=== PATIENT | female | born 1935 | race Caucasian/White ===

== ENCOUNTER 2016-12-11 10:07 | Inpatient (IN) | payer MEDICARE, BC ==
--- NOTE | 2016-12-11 10:12 | EDM.PDOC ---
[id number] AMBULANCE Time Seen by Provider: 12/11/16 10:11 Source: Reports: Patient, EMS, Family, Old records, RN, RN notes reviewed History Limitations: Reports: No limitations - History of Present Illness INITIAL COMMENTS - FREE TEXT/NARRATIVE: Arrives by ambulance after falling in her apartment during the night. Denies head injury. Pt states she was on the floor for less than one hour. C/O left foot pain, and at the hip and left elbow. Denies LOC. Occurred When: this morning Occurred Where: home Method of Injury: fall Severity: severe Pain/Injury Location: Reports: upper extremity, left, lower extremity, left Consciousness: Reports: no loss of consciousness, remembers incident Associated Symptoms: Reports: no other symptoms Allergies/ADRs: Allergies tape Allergy (Uncoded 12/11/16 10:54) Cannot Remember Home Medications: Ambulatory Orders Digoxin [Digox] 125 mcg PO DAILY 06/23/14 [Confirmed 12/11/16] Diltiazem HCl [Diltiazem 24Hr ER] 300 mg PO DAILY 06/23/14 [Confirmed 12/11/16] Fa/Arginine HCl/B12/B6/Pep Ex [Folbee Ar Tablet] 1 tab PO 1200 06/23/14 [ Confirmed 12/11/16] sitaGLIPtin Phosphate [Januvia] 100 mg PO 1200 06/23/14 [Confirmed 12/11/16] Dorzolamide HCl/Timolol Maleat [Cosopt Eye Drops] 1 drop EYERT BID 07/05/15 [ Confirmed 12/11/16] Glimepiride 4 mg PO 0800,1800 07/05/15 [Confirmed 12/11/16] atorvaSTATin [Lipitor] 20 mg PO BEDTIME 07/05/15 [Confirmed 12/11/16] Potassium Chloride [Klor-Con 10] 20 meq PO 1200,1800 11/11/15 [Confirmed ] Sertraline [Zoloft] 50 mg PO BEDTIME 11/11/15 [Confirmed 12/11/16] traMADol HCl [Tramadol HCl] 50 mg PO BID 11/11/15 [Confirmed 12/11/16] OXcarbazepine [Oxcarbazepine] 450 mg PO 0800,2100 04/19/16 [Confirmed 12/11/16] Acetaminophen [Tylenol Extra Strength] 1,000 mg PO 0800,199908/10/16 [ Confirmed 12/11/16] Furosemide 40 mg PO DAILY 08/10/16 [Confirmed 12/11/16] Metolazone 2.5 mg PO .SUNDAY,SUN,Sun08/10/16 [Confirmed 12/11/16] Warfarin [Coumadin] 5 mg PO 1800 08/10/16 [Confirmed 12/11/16] Lisinopril [Prinivil] 5 mg PO DAILY 30 Days 08/24/16 [Confirmed 12/11/16] Magnesium Oxide 250 mg PO BIDM tablet 08/24/16 [Confirmed 12/11/16] metFORMIN [Glucophage] 1,000 mg PO BIDMEALS #60 tablet 08/24/16 [Confirmed 12/11] Acetaminophen/HYDROcodone [[place] 325-10 MG] 0.5 tab PO Q4H PRN #20 tablet Aspirin [Halfprin] 81 mg PO 1200 tab.ec 12/12/16 Ciprofloxacin HCl [Cipro] 500 mg PO Q12H #10 tablet 12/12/16 Gabapentin [Neurontin] 600 mg PO TID PRN #0 12/12/16 [Confirmed 12/11/16] Iron Polysaccharides Complex [Ferrex 150] 150 mg PO DAILY #30 cap 12/12/16 Past Medical History HEENT History: Reports: Glaucoma, Hard of hearing, Impaired vision Other HEENT History: glasses; UPPER AND LOWER PARTIALS Cardiovascular History: Reports: Afib, Blood clots/VTE/DVT, CAD, Heart Failure, High cholesterol, Hypertension, Stents Respiratory History: Reports: None Genitourinary History: Reports: Urinary incontinence, UTI, recurrent Other Genitourinary History: stress 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: Musculoskeletal History: Reports: Osteoarthritis Neurological History: Reports: CVA, Neuropathy, peripheral, Other (see below) Other Neuro History: trigeminal neuralgia Psychiatric History: Reports: Depression Other Psychiatric History: recent loss of Endocrine/Metabolic History: Reports: Diabetes, type II - Infectious Disease History Infectious Disease History: Reports: Other (see below) Other Infectious Disease History: UNKNOWN - Past Surgical History GI Surgical History: Reports: Appendectomy, Cholecystectomy Musculoskeletal Surgical History: Reports: Shoulder replacement Social & Family History - Family History Family Medical History: Noncontributory - Tobacco Use Smoking Status *Q: Former Smoker Years of Tobacco use: 9 Packs/Tins Daily: 1 Used Tobacco, but Quit: Yes Month Tobacco Last Used: 1964 Second Hand Smoke Exposure: No - Caffeine Use Caffeine Use: Reports: Coffee, Tea Other Caffeine Use: DAILY AVERAGE 1 IF ANY - Alcohol Use Days Per Week of Alcohol Use: 0 - Recreational Drug Use Recreational Drug Use: No - Living Situation & Occupation Living situation: Reports: , assisted living Occupation: retired Review of Systems - Review of Systems Review Of Systems: ROS reveals no pertinent complaints other than HPI. Trauma Exam - Physical Exam Exam: See Below Exam Limited By: No limitations General Appearance: Reports: alert, WD/WN, no apparent distress Head: Reports: atraumatic, normocephalic Eyes: bilateral eye: EOMI, normal inspection, PERRL Ears: Reports: normal external exam, normal canal, hearing grossly normal, normal TMs Nose: Reports: normal inspection, normal mucousa, no blood Throat/Mouth: Reports: Normal inspection, Normal lips, Normal teeth, Normal gums , Normal oropharynx, Normal voice, No airway compromise Neck: Reports: non-tender, full range of motion, normal alignment, normal inspection Respiratory Exam: Reports: no respiratory distress, lungs clear, normal breath sounds Cardiovascular: Reports: normal peripheral pulses, regular rate, rhythm, no edema, no gallop, no JVD, no murmur, no rub GI/Abdominal: Reports: normal bowel sounds, soft, non tender, no distention (Female) Exam: Deferred Rectal (Female) Exam: Deferred Back: Reports: decreased range of motion, paraspinal tenderness. Denies: CVA tenderness (R), CVA tenderness (L), vertebral tenderness Extremities: Reports: pelvis stable, bony-point tenderness (left forefoot), pedal edema (chronic/stable per pt), unable to bear weight, other (mild swelling of left elbow. 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, no motor/sensory deficits, alert , normal mood/affect, oriented x 3 Skin: Reports: Normal color, Warm/dry - Denys Coma Score Best Eye Response (Denys): (4) open spontaneously Best Verbal Response (Warren): (5) oriented Best Motor Response (Denys): (6) obeys commands Denys Total: 15 ED TRAUMA EXTREMITY PROCEDURES - Splinting Left Lower Extremity Splint site: left lower extremity Pre-procedure NV status: normal Post-procedure NV status: normal Splint material: fiberglass Splint design: posterior Applied & form fitted by: nurse Provider post-splint application NV check: NV status normal, good position Complications: Yes Course - Vital Signs Last Recorded V/S: Last Vital Signs Temp 36.4 C 12/12/16 10:38 Pulse 62 12/12/16 10:38 Resp 20 12/12/16 10:38 BP 137/72 12/12/16 10:38 Pulse Ox 94 L 12/12/16 10:38 - Orders/Labs/Meds Labs: Laboratory Tests 12/11/16 12/11/16 12/11/16 Range/Units 10:14 10:28 10:28 WBC 8.0 (5.0-10.0) 10^3/uL RBC 3.78 L (4.2-5.4) 10^6/uL Hgb 10.6 L (12.0-16.0) g/dL Hct 32.5 L (37.0-47.0) % MCV 86.0 (80-100) fL MCH 28.0 (27.0-34.0) pg MCHC 32.6 L (33.0-35.0) g/dL Plt Count 298 (150-450) 10^3/uL Neut % (Auto) 78.9 H (42.2-75.2) % Lymph % (Auto) 10.5 L (20.5-50.1) % Russell % (Auto) 9.1 H (2-8) % Eos % (Auto) 1.1 (1.0-3.0) % Baso % (Auto) 0.4 (0.0-1.0) % PT (9.0-12.0) SEC INR (0.9-1.2) Sodium 136 (135-145) mmol/L Potassium 4.0 (3.6-5.0) mmol/L Chloride 95 L (101-111) mmol/L Carbon Dioxide 31.0 (21.0-31.0) mmol/L Anion Gap 14.0 BUN 16 (7-18) mg/dL Creatinine 0.4 L (0.6-1.3) mg/dL Est Cr Clr Drug Dosing 92.69 mL/min Estimated GFR (MDRD) > 60 BUN/Creatinine Ratio 40.00 Glucose 149 H (74-105) mg/dL Calcium 9.3 (8.4-10.2) mg/dl Total Bilirubin 0.3 (0.2-1.0) mg/dL AST 29 (10-42) IU/L ALT 31 (10-60) IU/L Alkaline Phosphatase 88 (42-121) IU/L Total Protein 7.0 (6.7-8.2) g/dl Albumin 3.9 (3.2-5.5) g/dl Globulin 3.1 Albumin/Globulin Ratio 1.26 Urine Color Yellow (YELLOW) Urine Appearance Cloudy (CLEAR) Urine pH 7.0 (5.0-9.0) Ur Specific [place] 1.015 (1.005-1.030) Urine Protein Negative (NEGATIVE) Urine Glucose (UA) Negative (NEGATIVE) Urine Ketones Negative (NEGATIVE) Urine Occult Blood Trace-intact H (NEGATIVE) Urine Nitrite Positive H (NEGATIVE) Urine Bilirubin Negative (NEGATIVE) Urine Urobilinogen 0.2 (0.2-1.0) mg/dL Ur Leukocyte Esterase Negative (NEGATIVE) Urine RBC 0-5 /HPF Urine WBC 10-20 H (0-5/HPF) /HPF Ur Epithelial Cells Few /HPF Urine Bacteria Many H (0-FEW/HPF) /HPF Digoxin (0-2.5) ng/ml 12/11/16 12/11/16 Range/Units 10:28 10:28 WBC (5.0-10.0) 10^3/uL RBC (4.2-5.4) 10^6/uL Hgb (12.0-16.0) g/dL Hct (37.0-47.0) % MCV (80-100) fL MCH (27.0-34.0) pg MCHC (33.0-35.0) g/dL Plt Count (150-450) 10^3/uL Neut % (Auto) (42.2-75.2) % Lymph % (Auto) (20.5-50.1) % Russell % (Auto) (2-8) % Eos % (Auto) (1.0-3.0) % Baso % (Auto) (0.0-1.0) % PT 18.2 H (9.0-12.0) SEC INR 1.8 H (0.9-1.2) Sodium (135-145) mmol/L Potassium (3.6-5.0) mmol/L Chloride (101-111) mmol/L Carbon Dioxide (21.0-31.0) mmol/L Anion Gap BUN (7-18) mg/dL Creatinine (0.6-1.3) mg/dL Est Cr Clr Drug Dosing mL/min Estimated GFR (MDRD) BUN/Creatinine Ratio Glucose (74-105) mg/dL Calcium (8.4-10.2) mg/dl Total Bilirubin (0.2-1.0) mg/dL AST (10-42) IU/L ALT (10-60) IU/L Alkaline Phosphatase (42-121) IU/L Total Protein (6.7-8.2) g/dl Albumin (3.2-5.5) g/dl Globulin Albumin/Globulin Ratio Urine Color (YELLOW) Urine Appearance (CLEAR) Urine pH (5.0-9.0) Ur Specific [place] (1.005-1.030) Urine Protein (NEGATIVE) Urine Glucose (UA) (NEGATIVE) Urine Ketones (NEGATIVE) Urine Occult Blood (NEGATIVE) Urine Nitrite (NEGATIVE) Urine Bilirubin (NEGATIVE) Urine Urobilinogen (0.2-1.0) mg/dL Ur Leukocyte Esterase (NEGATIVE) Urine RBC /HPF Urine WBC (0-5/HPF) /HPF Ur Epithelial Cells /HPF Urine Bacteria (0-FEW/HPF) /HPF Digoxin 1.9 (0-2.5) ng/ml Meds: Medications Discontinued Medications Generic Name Dose Route Start Last Admin Trade Name Freq PRN Reason Stop Dose Admin Acetaminophen 1,000 mg 12/11/16 20:00 12/12/16 09:08 Tylenol Extra Strength PO 1,000 mg 08,1999 RIKA Administration Hydrocodone Bitart/Acetaminophen 0.5 tab 12/11/16 14:44 12/11/16 18:05 [place] 325-10 Mg PO 0.5 tab Q4H PRN Administration Pain (moderate 4-6) Aspirin 81 mg 12/12/16 12:00 12/12/16 12:42 Halfprin PO 81 mg 1200 RIKA Administration Atorvastatin Calcium 20 mg 12/11/16 21:00 12/11/16 21:02 Lipitor PO 20 mg BEDTIME RIKA Administration Digoxin 125 mcg 12/12/16 09:00 12/12/16 08:52 Lanoxin PO 125 mcg DAILY IRKA Administration Diltiazem HCl 120 mg 12/12/16 09:00 12/12/16 08:51 Cardizem Cd PO 120 mg DAILY RIKA Administration Diltiazem HCl 180 mg 12/12/16 09:00 12/12/16 08:51 Cardizem Cd PO 180 mg DAILY RIKA Administration Dorzolamide/Timolol 0 ml 12/11/16 21:00 12/12/16 09:02 Cosopt 2%-0.5% Ophth Soln EYERT 1 drop BID RIKA Administration Furosemide 40 mg 12/12/16 09:00 12/12/16 08:54 Lasix PO 40 mg DAILY RIKA Administration Gabapentin 600 mg 12/11/16 14:28 Neurontin PO TID PRN Pain Glimepiride 4 mg 12/11/16 18:00 12/12/16 09:09 Amaryl PO 4 mg 0800,1800 RIKA Administration Ceftriaxone Sodium 1 gm/ 50 mls @ 100 mls/hr 12/11/16 15:00 12/12/16 11:31 Sodium Chloride IV 100 mls/hr Q24H RIKA Administration Insulin Aspart 0 unit 12/11/16 17:00 12/12/16 12:31 Novolog SUBCUT 1 unit QIDACANDBED RIKA Administration Protocol Lisinopril 5 mg 12/12/16 09:00 12/12/16 08:54 Prinivil PO 5 mg DAILY RIKA Administration Magnesium Oxide 250 mg 12/11/16 14:30 12/12/16 08:49 Magnesium Oxide PO 250 mg BIDM RIKA Administration Metformin HCl 1,000 mg 12/11/16 18:00 12/12/16 08:49 Glucophage PO 1,000 mg BIDMEALS RIKA Administration Metolazone 2.5 mg 12/13/16 09:00 Zaroxolyn PO [id number] [facility] Non-Formulary Medication 1 tab 12/12/16 12:00 Fa/Arginine Hcl/B12/B6/Pep Ex [Folbee Ar Tablet] PO 1200 RIKA Non-Formulary Medication 600 mg 12/11/16 17:00 Gabapentin PO QID RIKA Non-Formulary Medication 100 mg 12/12/16 12:00 Sitagliptin Phosphate [Januvia] PO 1200 RIKA Ondansetron HCl 4 mg 12/11/16 14:44 Zofran IVPUSH Q6H PRN Nausea/Vomiting Oxcarbazepine 450 mg 12/11/16 21:00 12/12/16 09:10 Trileptal PO 450 mg 0800,2100 [facility] Administration Polyethylene Glycol 17 gm 12/11/16 14:44 Miralax PO DAILY PRN Constipation Polysaccharide Iron Complex 150 mg 12/11/16 15:30 12/12/16 08:52 Ferrex 150 PO 150 mg DAILY RIKA Administration Potassium Chloride 20 meq 12/11/16 18:00 12/12/16 12:42 Klor-Con 10 PO 20 meq 1200,1800 RIKA Administration Sertraline HCl 50 mg 12/11/16 21:00 12/11/16 21:02 Zoloft PO 50 mg BEDTIME RIKA Administration Sodium Chloride 10 ml 12/11/16 14:44 12/12/16 11:32 Saline Flush FLUSH 10 ml ASDIRECTED PRN Administration Keep Vein Open Tramadol HCl 50 mg 12/11/16 21:00 12/12/16 09:00 Ultram PO 50 mg BID RIKA Administration Warfarin Sodium 5 mg 12/11/16 15:15 12/11/16 15:49 Coumadin PO 12/11/16 15:16 5 mg ONETIME ONE Administration Warfarin Sodium 0 dose 12/11/16 15:15 Pharmacy To Dose - Warfarin PO ASDIRECTED RIKA Warfarin Sodium 5 mg 12/12/16 14:00 12/12/16 13:00 Coumadin PO 12/12/16 14:01 5 mg ONETIME ONE Administration - Radiology Interpretation Free Text/Narrative:: Xray left foot: Fractures at distal MTs 2-5, see Rad. report. Xray hip and elbow: no fractures Departure - Departure Time of Disposition: 11:00 (admitted to Dr. Rivera) Disposition: Admitted As Inpatient 64 Condition: fair Clinical Impression: Fall as cause of accidental injury at home as place of occurrence Multiple closed fractures of metatarsal bone of left foot Qualifiers: Encounter type: initial encounter Qualified Code(s): S92.302A - Fracture of unspecified metatarsal bone(s), left foot, initial encounter for closed fracture UTI (urinary tract infection) Qualifiers: Urinary tract infection type: site unspecified Hematuria presence: without hematuria Qualified Code(s): N39.0 - Urinary tract infection, site not specified
--- NOTE | 2016-12-11 11:06 | CR ---
CLINICAL HISTORY: 81-year-old female injured in a fall. INTERPRETATION abnormal. Fractures with impaction and some angulation deformity distal diametaphysis second, third, fourth an d fifth metatarsals. Generalized osteopenia, pes cavus and hammertoe deformities. Small bone spur at the insertion planta r aponeurosis base of the os calcis. No foreign bodies or inflammatory periostitis. CONCLUSION: Distal metatarsal fractures (see above) satisfactorily opposed and aligned.
--- NOTE | 2016-12-11 11:07 | CR ---
CLINICAL HISTORY: 81-year-old female injured in a fall with left hip pain. INTERPRETATION: AP pelvis/hips and AP/frog lateral views of the left hip abnormal. 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 Symmetric spacing of the SI joints but asymmetric narrowing of the right hip joint. Generalized osteopenia but no sign of acute fracture bony pelvis or either hip. No hip dislocation.
[2016-12-11 11:09] LABS: CHLORIDE,CL 95 mmol/L (101-111); SODIUM,NA 136 mmol/L (135-145)
--- NOTE | 2016-12-11 12:20 | CR ---
CLINICAL HISTORY: 81 year old female injured left elbow (fall). INTERPRETATION: Slightly elevated fat pad suggesting elbow joint effusion. Homogeneous normal density without sign of acute fracture or dislocation left elbow. (Methylmethacr ylate in the medulla ipsilateral humerus proximally).
[2016-12-11] MEDS ORDERED: Gabapentin 300 MG Cap PO PRN (14:28)
[2016-12-11] MEDS ORDERED: Acetaminophen/HYDROcodone 325-10 MG Tab PO PRN (14:44)
[2016-12-11] MEDS ORDERED: Polyethylene Glycol 3350 Powder 17 GM Packet PO PRN (14:44)
[2016-12-11] MEDS ORDERED: Ondansetron 4 MG/2 ML SDV IVPUSH PRN (14:44)
--- NOTE | 2016-12-11 15:02 | PCM.HP ---
H&P History of Present Illness - General Date of Service: 12/11/16 Admit Problem/Dx: Admission Diagnosis/Problem Admission Diagnosis/Problem Fall Source of Information: Patient, Family History Limitations: Reports: No limitations - History of Present Illness Initial Comments - Free Text/Narative: 81-year-old female with past medical history of atrial fibrillation, coronary artery disease status post stent, CVA with right hemiparesis, diabetes mellitus type 2 presented to the emergency room after falling at home. Patient lives at assisted living facility by herself. She stated that about 2 AM she got as usual to the bathroom for urination. She felt unsteady and fell on her left side between the toilet seat and to shower. She tried to support herself on the wall. she denies hitting her head or losing consciousness. She sat both 1-2 minutes trying to get herself up but she was not able so she puts the alarm button and the nurse came up. She was brought to the emergency room. She felt pain in her left elbow, left hip, left foot. She denies any other symptoms. Patient denies feeling sick, ill, or having any new symptoms prior to fall. the emergency room her left foot x-ray showed distal diametaphysis fracture with impaction and some angulation deformity in second, third, fourth, and fifth metatarsal. left elbow and hip x-ray was unremarkable for acute findings. UA showed positive nitrates and 10-20 WBCs and many bacteria. The shocks at level 1.9. WBC 8.0. Hemoglobin 10.6. platelet 298. INR 1.8. Sodium 136. Potassium 4.0. Creatinine 0.4. Random blood glucose 149. In the emergency room his splint was placed in the left lower extremities. Mcginnis catheter was placed in the emergency room for comfort. upon admission, Dr. Cleaning from podiatry was consulted. urine culture was sent. Versed and was started for possible complicated UTI Left Hip Pain Score (Numeric/FACES): 3 - Related Data Allergies/Adverse Reactions: Allergies Allergy/AdvReac Type Severity Reaction Status Date / Time tape Allergy Cannot Uncoded 12/11/16 10:54 Remember Home Medications: Home Meds Aspirin [Ecotrin] 81 mg PO 1200 06/23/14 [History] Digoxin [Digox] 125 mcg PO DAILY 06/23/14 [History] Diltiazem HCl [Diltiazem 24Hr ER] 300 mg PO DAILY 06/23/14 [History] Fa/Arginine HCl/B12/B6/Pep Ex [Folbee Ar Tablet] 1 tab PO 1200 06/23/14 [History ] sitaGLIPtin Phosphate [Januvia] 100 mg PO 1200 06/23/14 [History] Dorzolamide HCl/Timolol Maleat [Cosopt Eye Drops] 1 drop EYERT BID 07/05/15 [ History] Glimepiride 4 mg PO 0800,1800 07/05/15 [History] atorvaSTATin [Lipitor] 20 mg PO BEDTIME 07/05/15 [History] Potassium Chloride [Klor-Con 10] 20 meq PO 1200,1800 11/11/15 [History] Sertraline [Zoloft] 50 mg PO BEDTIME 11/11/15 [History] traMADol HCl [Tramadol HCl] 50 mg PO BID 11/11/15 [History] Gabapentin [Neurontin] 600 mg PO QID 04/19/16 [History] OXcarbazepine [Oxcarbazepine] 450 mg PO 0800,2100 04/19/16 [History] Acetaminophen [Tylenol Extra Strength] 1,000 mg PO 0800,199908/10/16 [History] Furosemide 40 mg PO DAILY 08/10/16 [History] Metolazone 2.5 mg PO .SUNDAY,SUN,Sun08/10/16 [History] Warfarin [Coumadin] 5 mg PO 1800 08/10/16 [History] Lisinopril [Prinivil] 5 mg PO DAILY 30 Days 08/24/16 [Rx] Magnesium Oxide 250 mg PO BIDM tablet 08/24/16 [Rx] metFORMIN [Glucophage] 1,000 mg PO BIDMEALS #60 tablet 08/24/16 [Rx] Past Medical History HEENT History: Reports: Glaucoma, Hard of hearing, Impaired vision Other HEENT History: glasses; UPPER AND LOWER PARTIALS Cardiovascular History: Reports: Afib, Blood clots/VTE/DVT, CAD, Heart Failure, High cholesterol, Hypertension, Stents Respiratory History: Reports: None Genitourinary History: Reports: Urinary incontinence, UTI, recurrent Other Genitourinary History: stress incont HAND I CUTTER History: Reports: Musculoskeletal History: Reports: Osteoarthritis Neurological History: Reports: CVA, Neuropathy, peripheral, Other (see below) Other Neuro History: trigeminal neuralgia Psychiatric History: Reports: Depression Other Psychiatric History: recent loss of Endocrine/Metabolic History: Reports: Diabetes, type II - Infectious Disease History Infectious Disease History: Reports: Other (see below) Other Infectious Disease History: UNKNOWN - Past Surgical History GI Surgical History: Reports: Appendectomy, Cholecystectomy Musculoskeletal Surgical History: Reports: Shoulder replacement Social & Family History - Family History Family Medical History: Noncontributory - Tobacco Use Smoking Status *Q: Former Smoker Years of Tobacco use: 9 Packs/Tins Daily: 1 Used Tobacco, but Quit: Yes Month Tobacco Last Used: 1964 Second Hand Smoke Exposure: No - Caffeine Use Caffeine Use: Reports: Soda Other Caffeine Use: Diet coke - Alcohol Use Days Per Week of Alcohol Use: 0 - Recreational Drug Use Recreational Drug Use: No - Living Situation & Occupation Living situation: Reports: , assisted living Occupation: retired H&P Review of Systems - Review of Systems: Review Of Systems: See Below General: Reports: no symptoms HEENT: Reports: no symptoms Pulmonary: Reports: No Symptoms Cardiovascular: Reports: no symptoms Gastrointestinal: Reports: No symptoms Genitourinary: Reports: no symptoms Musculoskeletal: Denies: neck pain, shoulder pain Skin: Reports: no symptoms Psychiatric: Reports: no symptoms Neurological: Reports: Other (she has chronic left facial neuropathic pain). Denies: Confusion, Dizziness, Headache, Numbness, Paresthesia, Seizure, Syncope , Trouble Speaking, Difficulty Walking Hematologic/Lymphatic: Reports: no symptoms Immunologic: Reports: no symptoms Exam - Exam Exam: See Below - Vital Signs Vital Signs: Last Vital Signs Temp 36.1 C 12/11/16 12:15 Pulse 64 12/11/16 12:15 Resp 18 12/11/16 12:15 BP 128/64 12/11/16 12:15 Pulse Ox 96 12/11/16 12:15 Weight: 71.223 kg - Exam General: alert, oriented, cooperative, mild distress. No: moderate distress, severe distress, sedated, lethargic, obtunded HEENT: Conjunctiva clear, EACs clear, EOMI, Hearing intact, Mucosa moist & pink , Nares patent, Normal nasal septum, Posterior pharynx clear, Pupils equal, Pupils reactive, TMs clear, PERRLA Neck: supple, trachea midline, full range of motion. No: JVD Lungs: Clear to auscultation, Normal respiratory effort. No: Crackles, Rales, Rhonchi, Rub, Stridor, Wheezing Cardiovascular: regular rate, regular rhythm, normal S1, normal S2 Abdomen: normal bowel sounds, soft. No: organomegaly, peritoneal signs, distention, guarding, rigidity, rebound, tenderness, absent bowel sounds (Female) Exam: Deferred Rectal (Female) Exam: Deferred Back Exam: normal inspection. No: CVA tenderness (L), CVA tenderness (R) Extremities: edema (non pitting 2+ bilateral lower extremity edema. Chronic according to patient. left elbow bruised laterally. normal hips. Left lower extremity is in splint. Toes are normal bilaterally.). No: clubbing, cyanosis, calf tenderness Skin: warm, dry Neurological: cranial nerves intact, normal speech, normal tone, focal deficit ( right-sided weakness which is chronic per patient. Patient denies any changes.) Neuro Extensive - Mental Status: alert, oriented x3, normal mood/affect, normal cognition Neuro Extensive - Motor, Sensory, Reflexes: CN II-XII intact, normal gait, normal reflexes Psychiatric: alert, normal affect, normal mood - Patient Data Result Diagrams: 12/11/16 10:28 12/11/16 10:28 *Q Meaningful Use (ADM) - VTE *Q VTE Criteria *Q: - Stroke *Q Stroke Criteria *Q: - AMI *Q AMI Criteria *Q: - Problem List (1) Neuropathic pain SNOMED Code(s): 725102960 ICD Code: M79.2 - NEURALGIA AND NEURITIS, UNSPECIFIED Status: Chronic Priority: Low Current Visit: No (2) Atrial fibrillation SNOMED Code(s): 17424480 ICD Code: I48.91 - UNSPECIFIED ATRIAL FIBRILLATION Status: Chronic Priority: Medium Current Visit: No (3) Bilateral lower extremity edema SNOMED Code(s): 731427196 ICD Code: R60.0 - LOCALIZED EDEMA Status: Chronic Priority: Low Current Visit: Yes Onset Date: 07/05/15 (4) Diabetes mellitus type 2, uncomplicated SNOMED Code(s): 665124893 ICD Code: E11.9 - TYPE 2 DIABETES MELLITUS WITHOUT COMPLICATIONS Status: Chronic Current Visit: No (5) Fall SNOMED Code(s): 1221007, 574426129 ICD Code: W19.XXXA - UNSPECIFIED FALL, INITIAL ENCOUNTER Status: Acute Priority: High Current Visit: Yes Qualifiers: Encounter type: initial encounter Qualified Code(s): W19.XXXA - Unspecified fall, initial encounter (6) Trigeminal neuralgia SNOMED Code(s): 54634735 ICD Code: G50.0 - TRIGEMINAL NEURALGIA Status: Chronic Current Visit: No Problem List Initiated/Reviewed/Updated: Yes Orders Last 24hrs: Active Orders 24 hr Category Date Time Status Patient Status [ADT] Routine ADT 12/11/16 13:46 Ordered Antiembolic Devices [RC] PER UNIT ROUTINE Care 12/11/16 14:48 Ordered Height and Weight [RC] DAILY Care 12/11/16 14:44 Ordered Intake and Output [RC] QSHIFT Care 12/11/16 14:47 Ordered Oxygen Therapy [RC] PRN Care 12/11/16 14:46 Ordered Peripheral IV Care [RC] . DIRECTED Care 12/11/16 14:49 Ordered Up ad Fiorella [RC] ASDIRECTED Care 12/11/16 14:44 Ordered VTE/DVT Education [RC] PER UNIT ROUTINE Care 12/11/16 14:46 Ordered Vital Signs [RC] Q4H Care 12/11/16 14:46 Ordered Consult to Pharmacy [CONS] Routine Cons 12/11/16 14:22 Active OT Evaluation and Treatment [CONS] Routine Cons 12/11/16 14:44 Ordered PT Evaluation and Treatment [CONS] Routine Cons 12/11/16 14:44 Ordered Consistent Carbohydrate Diet [DIET] Diet 12/11/16 Breakfast Ordered Late Tray [DIET] Routine Diet 12/11/16 11:50 Active BASIC METABOLIC PANEL,BMP [CHEM] AM Lab 12/12/16 05:11 Ordered CBC WITH AUTO DIFF [HEME] AM Lab 12/12/16 05:11 Ordered CULTURE URINE [RM] Routine Lab 12/11/16 14:21 Uncollected Acetaminophen [Tylenol Extra Strength] Med 12/11/16 20:00 Active 1,000 mg PO 0800,2000 Acetaminophen/HYDROcodone [[place] 325-10 MG] Med 12/11/16 14:44 Ordered 0.5 tab PO Q4H PRN Aspirin [Halfprin] Med 12/12/16 12:00 Active 81 mg PO 1200 Digoxin [Lanoxin] Med 12/12/16 09:00 Active 125 mcg PO DAILY Diltiazem HCl Med 12/12/16 09:00 Ordered 300 mg PO DAILY Dorzolamide/Timolol [Cosopt 2%-0.5% Ophth Soln] Med 12/11/16 21:00 Active 0 ml EYERT BID Fa/Arginine HCl/B12/B6/Pep Ex [Folbee Ar Tablet] Med 12/12/16 12:00 Ordered 1 tab PO 1200 Furosemide [Lasix] Med 12/12/16 09:00 Active 40 mg PO DAILY Gabapentin Med 12/11/16 14:28 Ordered 600 mg PO TID PRN Glimepiride Med 12/11/16 18:00 Ordered 4 mg PO 0800,1800 Lisinopril [Prinivil] Med 12/12/16 09:00 Active 5 mg PO DAILY Magnesium Oxide Med 12/11/16 14:30 Active 250 mg PO BIDM Metolazone [Zaroxolyn] Med 12/13/16 09:00 Active 2.5 mg PO MoWeFr@0900 OXcarbazepine [Trileptal] Med 12/11/16 21:00 Ordered 450 mg PO 0800,2100 Ondansetron [Zofran] Med 12/11/16 14:44 Ordered 4 mg IVPUSH Q6H PRN Polyethylene Glycol 3350 [MiraLAX] Med 12/11/16 14:44 Ordered 17 gm PO DAILY PRN Potassium Chloride [Klor-Con 10] Med 12/11/16 18:00 Ordered 20 meq PO 1200,1800 Sertraline [Zoloft] Med 12/11/16 21:00 Ordered 50 mg PO BEDTIME Sodium Chloride 0.9% [Saline Flush] Med 12/11/16 14:44 Ordered 10 ml FLUSH ASDIRECTED PRN Warfarin [Coumadin] Med 12/11/16 18:00 Ordered 5 mg PO 1800 atorvaSTATin [Lipitor] Med 12/11/16 21:00 Active 20 mg PO BEDTIME cefTRIAXone [Rocephin] 1 gm Med 12/11/16 14:30 Ordered Sodium Chloride 0.9% [Normal Saline] 100 ml IV Q24H metFORMIN [Glucophage] Med 12/11/16 18:00 Active 1,000 mg PO BIDMEALS sitaGLIPtin Phosphate [Januvia] Med 12/12/16 12:00 Ordered 100 mg PO 1200 traMADol [Ultram] Med 12/11/16 21:00 Ordered 50 mg PO BID Antiembolic Hose [OM.PC] Per Unit Routine Oth 12/11/16 14:47 Ordered Peripheral IV Insertion Adult [OM.PC] Routine Oth 12/11/16 14:44 Ordered Saline Lock Insert [OM.PC] Routine Oth 12/11/16 14:44 Ordered Resuscitation Status Routine Resus Stat 12/11/16 14:44 Ordered Medication Orders Acetaminophen (Tylenol Extra Strength) 1,000 mg PO 0800,2000 [facility] Hydrocodone Bitart/Acetaminophen ([place] 325-10 Mg) 0.5 tab PO Q4H PRN PRN Reason: Pain (moderate 4-6) Aspirin (Halfprin) 81 mg PO 1200 [facility] Atorvastatin Calcium (Lipitor) 20 mg PO BEDTIME [facility] Digoxin (Lanoxin) 125 mcg PO DAILY [facility] Dorzolamide/Timolol (Cosopt 2%-0.5% Ophth Soln) 0 ml EYERT BID [facility] Furosemide (Lasix) 40 mg PO DAILY [facility] Ceftriaxone Sodium 1 gm/ (Sodium Chloride) 50 mls @ 100 mls/hr IV Q24H [facility] Lisinopril (Prinivil) 5 mg PO DAILY [facility] Magnesium Oxide (Magnesium Oxide) 250 mg PO BIDM [facility] Metformin HCl (Glucophage) 1,000 mg PO BIDMEALS [facility] Metolazone (Zaroxolyn) 2.5 mg PO MoWeFr@0900 [facility] Non-Formulary Medication (Diltiazem Hcl) 300 mg PO DAILY [facility] Non-Formulary Medication (Fa/Arginine Hcl/B12/B6/Pep Ex [Folbee Ar Tablet]) 1 tab PO 1200 [facility] Non-Formulary Medication (Glimepiride) 4 mg PO 0800,1800 [facility] Non-Formulary Medication (Sitagliptin Phosphate [Januvia]) 100 mg PO 1200 [facility] Non-Formulary Medication (Gabapentin) 600 mg PO TID PRN PRN Reason: Pain Ondansetron HCl (Zofran) 4 mg IVPUSH Q6H PRN PRN Reason: Nausea/Vomiting Oxcarbazepine (Trileptal) 450 mg PO 0800,2100 [facility] Polyethylene Glycol (Miralax) 17 gm PO DAILY PRN PRN Reason: Constipation Potassium Chloride (Klor-Con 10) 20 meq PO 1200,1800 [facility] Sertraline HCl (Zoloft) 50 mg PO BEDTIME [facility] Tramadol HCl (Ultram) 50 mg PO BID [facility] Warfarin Sodium (Coumadin) 5 mg PO 1800 [facility] Assessment/Plan Comment:: Distal metatarsal fracture in second, third, fourth, and this metatarsals with impaction and some angulation --Keep the splint for now until being evaluated by Dr. Cleaning from podiatry -control pain as needed Fall at home due to her right hemiparesis PT/OT evaluation and treatment Discussed with patient possible shelter placement after discharge patient is agreeable at this time Chronic anemia Hemoglobin is at baseline. She denies bleeding or black stool Will give a trial of iron orally Subtherapeutic INR Pharmacy is consulted to dose Coumadin complicated UTI --Urine culture is sent --Rocephin IV is started Right hemiparesis after stroke PT/OT evaluation and treatment I discussed shelter placement after being discharged from hospital. Patient and Daughters are agreeable at this time Trigeminal neuralgia She has been seen by Dr. Gaytan from neurology. He started her on gabapentin. She was taking 3600 mg per 24 hours. 3 weeks ago her primary care provider decreased to 900 mg morning then 600 mg after 8 hours then another 600 mg after 8 hours. Total of 2100 mg per 24 hours. Patient seems to be tolerating that well and she did not have any trigeminal neuralgia pain since --at this time I discussed with patient and daughters to do 600 mg every 8 hours as needed instead of scheduled. They are happy with this choice Diabetes mellitus type 2 resume home medications Sliding scale insulin Lower extremities edema According to patient and the daughter is, it looks better than usual resume cardiac home medications Essential benign hypertension resume home medications JOSE hose for DVT prophylaxis. No pharmaceutical DVT prophylaxis is needed at this time as she is on Coumadin She wants to be DNR plan of care was discussed with patient and daughters and they verbalized understanding and agreed with it.
[2016-12-11] MEDS ORDERED: Warfarin 5 MG Tab PO ONE (15:15)
[2016-12-11] MEDS: cefTRIAXone 1 GM in Sodium Chloride 0.9% 50 ML IV SCH (15:49)
[2016-12-11] MEDS: Sodium Chloride 0.9% 10 ML Syringe FLUSH PRN (15:49)
[2016-12-11] MEDS: Iron Polysaccharides Complex 150 MG Cap PO SCH (16:37)
[2016-12-11] MEDS ORDERED: Non-Formulary Medication 1 Each (Gabapentin 600 MG) PO SCH (17:00)
[2016-12-11] MEDS: Glimepiride 2 MG Tab PO SCH (17:11)
[2016-12-11] MEDS: metFORMIN 500 MG Tab PO SCH (17:11)
[2016-12-11] MEDS: Potassium Chloride 10 MEQ Tab.ER PO SCH (17:11)
[2016-12-11] MEDS: Insulin Aspart 100 Units/ML 3 ML Pen SUBCUT SCH ×2 (17:12→21:32)
--- NOTE | 2016-12-11 17:21 | PCM.CONSN ---
- General Info Date of Service: 12/11/16 Subjective Update: Debbi is an 81 y/o female who early this AM was up to go to the bathroom and fell in the bathroom. She does live in assisted living at [facility]. She had pain to the left foot and inability to bear weight. She presented to ER today and had xrays taken which revealed multiple metatarsal fractures. She was placed into a well padded posterior splint. She reports some pain to the foot, however states it is not enough where she needs pain medication. Reports the splint feels comfortable for her. She does have a walker at home. - Patient Data Vitals - most recent: Last Vital Signs Temp 35.9 C 12/11/16 15:34 Pulse 61 12/11/16 15:34 Resp 20 12/11/16 15:34 BP 133/58 L 12/11/16 15:34 Pulse Ox 98 12/11/16 15:34 Weight - most recent: 71.223 kg I&O - last 24 hours: Intake & Output 12/11/16 12/11/16 12/11/16 06:59 14:59 22:59 Intake Total 43 Balance 43 Lab Results last 24 hrs: Laboratory Results - last 24 hr 12/11/16 Range/Units 16:59 POC Glucose 96 (83-110) mg/dl Med Orders - Current: Current Medications Acetaminophen (Tylenol Extra Strength) 1,000 mg PO 0800,2000 [facility] Hydrocodone Bitart/Acetaminophen ([place] 325-10 Mg) 0.5 tab PO Q4H PRN PRN Reason: Pain (moderate 4-6) Aspirin (Halfprin) 81 mg PO 1200 [facility] Atorvastatin Calcium (Lipitor) 20 mg PO BEDTIME [facility] Digoxin (Lanoxin) 125 mcg PO DAILY [facility] Diltiazem HCl (Cardizem Cd) 120 mg PO DAILY [facility] Diltiazem HCl (Cardizem Cd) 180 mg PO DAILY [facility] Dorzolamide/Timolol (Cosopt 2%-0.5% Ophth Soln) 0 ml EYERT BID [facility] Furosemide (Lasix) 40 mg PO DAILY [facility] Gabapentin (Neurontin) 600 mg PO TID PRN PRN Reason: Pain Glimepiride (Amaryl) 4 mg PO 0800,1800 [facility] Last Admin: 12/11/16 17:11 Dose: 4 mg Ceftriaxone Sodium 1 gm/ (Sodium Chloride) 50 mls @ 100 mls/hr IV Q24H [facility] Last Admin: 12/11/16 15:49 Dose: 100 mls/hr Insulin Aspart (Novolog) 0 unit SUBCUT QIDACANDBED [facility] PRN Reason: Protocol Last Admin: 12/11/16 17:12 Dose: Not Given Lisinopril (Prinivil) 5 mg PO DAILY [facility] Magnesium Oxide (Magnesium Oxide) 250 mg PO BIDM [facility] Last Admin: 12/11/16 17:11 Dose: 250 mg Metformin HCl (Glucophage) 1,000 mg PO BIDMEALS [facility] Last Admin: 12/11/16 17:11 Dose: 1,000 mg Metolazone (Zaroxolyn) 2.5 mg PO MoWeFr@0900 [facility] Non-Formulary Medication (Fa/Arginine Hcl/B12/B6/Pep Ex [Folbee Ar Tablet]) 1 tab PO 1200 [facility] Non-Formulary Medication (Sitagliptin Phosphate [Januvia]) 100 mg PO 1200 [facility] Ondansetron HCl (Zofran) 4 mg IVPUSH Q6H PRN PRN Reason: Nausea/Vomiting Oxcarbazepine (Trileptal) 450 mg PO 0800,2100 [facility] Polyethylene Glycol (Miralax) 17 gm PO DAILY PRN PRN Reason: Constipation Polysaccharide Iron Complex (Ferrex 150) 150 mg PO DAILY [facility] Last Admin: 12/11/16 16:37 Dose: 150 mg Potassium Chloride (Klor-Con 10) 20 meq PO 1200,1800 [facility] Last Admin: 12/11/16 17:11 Dose: 20 meq Sertraline HCl (Zoloft) 50 mg PO BEDTIME [facility] Sodium Chloride (Saline Flush) 10 ml FLUSH ASDIRECTED PRN PRN Reason: Keep Vein Open Last Admin: 12/11/16 15:49 Dose: 10 ml Tramadol HCl (Ultram) 50 mg PO BID [facility] Warfarin Sodium (Pharmacy To Dose - Warfarin) 0 dose PO ASDIRECTED [facility] Discontinued Medications Non-Formulary Medication (Gabapentin) 600 mg PO QID [facility] Warfarin Sodium (Coumadin) 5 mg PO ONETIME ONE Stop: 12/11/16 15:16 Last Admin: 12/11/16 15:49 Dose: 5 mg - Exam General: alert, oriented, no acute distress Physical Findings Comments:: Well padded posterior splint to the left LE. I did pull back the ar dressing to examine just the forefoot. There was minimal edema present. Pain to the forefoot at metatarsals 2-5. No pain lisfranc joint. N/V intact to LLE. Consult PN Assessment/Plan Procedures: Procedures ANESTH LENS SURGERY (06/24/14) ASSAY OF AMYLASE (07/05/15) ASSAY OF CK (CPK) (11/11/15) ASSAY OF DIGOXIN TOTAL (11/11/15) ASSAY OF LIPASE (07/05/15) ASSAY OF MAGNESIUM (08/10/16) ASSAY OF NATRIURETIC PEPTIDE (11/11/15) ASSAY OF SERUM POTASSIUM (07/05/15) ASSAY OF SERUM SODIUM (08/10/16) ASSAY OF TROPONIN QUANT (11/11/15) BREATHING CAPACITY TEST (08/10/16) C-REACTIVE PROTEIN (07/05/15) CATARACT SURG W/IOL 1 STAGE (06/24/14) CHEST X-RAY 1 VIEW FRONTAL (08/10/16) COMPLETE CBC W/AUTO DIFF WBC (08/10/16) COMPREHEN METABOLIC PANEL (08/10/16) CT HEAD/BRAIN W/O DYE (07/05/15) ELECTROCARDIOGRAM REPORT (11/11/15) ELECTROCARDIOGRAM TRACING (11/11/15) EMERGENCY DEPT VISIT (04/19/16) EMERGENCY DEPT VISIT (02/04/16) EMERGENCY DEPT VISIT (11/11/15) EMERGENCY DEPT VISIT (11/11/15) EXTREMITY STUDY (07/05/15) FIBRIN DEGRADATION QUANT (07/05/15) GLUCOSE BLOOD TEST (08/10/16) MANUAL THERAPY 1/> REGIONS (07/05/15) METABOLIC PANEL TOTAL CA (08/10/16) MICROBE SUSCEPTIBLE ANTHONY (08/10/16) OT EVALUATION (08/10/16) PPSV23 VACC 2 YRS+ SUBQ/IM (07/05/15) PROTHROMBIN TIME (08/30/16) PT EVALUATION (08/10/16) RBC SED RATE NONAUTOMATED (07/05/15) ROUTINE VENIPUNCTURE (08/10/16) SELF CARE MNGMENT TRAINING (04/19/16) THER/PROPH/DIAG INJ SC/IM (02/04/16) THERAPEUTIC ACTIVITIES (08/10/16) THERAPEUTIC EXERCISES (07/05/15) URINALYSIS AUTO W/SCOPE (08/10/16) URINE BACTERIA CULTURE (08/10/16) URINE CULTURE/COLONY COUNT (08/10/16) X-RAY EXAM HIPS BI 2 VIEWS (08/10/16) X-RAY EXAM L-S SPINE 2/3 VWS (08/10/16) X-RAY EXAM OF ABDOMEN (07/05/15) X-RAY EXAM OF ANKLE (04/19/16) X-RAY EXAM OF HIP (07/05/15) X-RAY EXAM OF KNEE 1 OR 2 (07/05/15) (1) Foot fracture, left SNOMED Code(s): 26578548 Code(s): S92.902A - UNSP FRACTURE OF LEFT FOOT, INIT ENCNTR FOR CLOSED FRACTURE Current Visit: Yes Qualifiers: Encounter type: initial encounter Fracture type: closed Qualified Code(s) : S92.902A - Unspecified fracture of left foot, initial encounter for closed fracture Problem List Initiated/Reviewed/Updated: Yes My Orders last 24 hours: My Active Orders 12/11/16 17:08 Weight bearing status [OM.PC] Routine Plan: Splint looks to be well padded and I think the splint will work well for her for at least the first few days. I want her to be NWB to the left foot, most likely will need to be NWB for approximately 4 weeks, then we can transition her to WB in cam boot. This is a non surgical fracture, I think it should heal well as it is minimally displaced, some slight angulation but that is mostly laterally and not plantar. Discussed with the patient that it usually takes 6 weeks for this type of fracture to heal. I am going to [place] on Sunday of this week. I can check on her at that time if she is out of hospital, and possibly place her into a cam boot so that she can at least move the ankle and do some non weight bearing range of motion to the ankle only, so the ankle does not stiffen and also to help prevent DVT. Continue splint until I see her Sunday.
[2016-12-11] MEDS: Acetaminophen 500 MG Tab PO SCH (19:48)
[2016-12-11] MEDS ORDERED: atorvaSTATin 20 MG Tab PO SCH (21:00)
[2016-12-11] MEDS: Dorzolamide/Timolol 2%-0.5% Ophth Soln 10 ML Bottle EYERT SCH (21:00)
[2016-12-11] MEDS ORDERED: Sertraline 50 MG Tab PO SCH (21:00)
[2016-12-11] MEDS: OXcarbazepine 300 MG Tab PO SCH (21:03)
[2016-12-11] MEDS: traMADol 50 MG Tab PO SCH (21:03)
[2016-12-12 06:40] LABS: CHLORIDE,CL 94 mmol/L (101-111); SODIUM,NA 137 mmol/L (135-145)
[2016-12-12] MEDS: Insulin Aspart 100 Units/ML 3 ML Pen SUBCUT SCH ×2 (08:47→12:31)
[2016-12-12] MEDS: metFORMIN 500 MG Tab PO SCH (08:49)
[2016-12-12] MEDS: Iron Polysaccharides Complex 150 MG Cap PO SCH (08:52)
[2016-12-12] MEDS ORDERED: Furosemide 40 MG Tab PO SCH (09:00)
[2016-12-12] MEDS ORDERED: Lisinopril 5 MG Tab PO SCH (09:00)
[2016-12-12] MEDS ORDERED: Diltiazem 180 MG Cap.CD PO SCH (09:00)
[2016-12-12] MEDS ORDERED: Digoxin 125 MCG Tab PO SCH (09:00)
[2016-12-12] MEDS: traMADol 50 MG Tab PO SCH (09:00)
[2016-12-12] MEDS ORDERED: Diltiazem 120 MG Cap.CD PO SCH (09:00)
[2016-12-12] MEDS: Dorzolamide/Timolol 2%-0.5% Ophth Soln 10 ML Bottle EYERT SCH (09:02)
[2016-12-12] MEDS: Acetaminophen 500 MG Tab PO SCH (09:08)
[2016-12-12] MEDS: Glimepiride 2 MG Tab PO SCH (09:09)
[2016-12-12] MEDS: OXcarbazepine 300 MG Tab PO SCH (09:10)
[2016-12-12 10:39] VITALS: BP 137/72
[2016-12-12] MEDS: cefTRIAXone 1 GM in Sodium Chloride 0.9% 50 ML IV SCH (11:31)
[2016-12-12] MEDS: Sodium Chloride 0.9% 10 ML Syringe FLUSH PRN (11:32)
--- NOTE | 2016-12-12 11:38 | PCM.DCSUM1 ---
Discharge Summary - Hospital Course Free Text/Narrative:: 81-year-old female with past medical history of atrial fibrillation, coronary artery disease status post stent, CVA with right hemiparesis, diabetes mellitus type 2 presented to the emergency room after falling at home. Patient lives at assisted living facility by herself. She stated that about 2 AM she got as usual to the bathroom for urination. She felt unsteady and fell on her left side between the toilet seat and to shower. She tried to support herself on the wall. she denies hitting her head or losing consciousness. She sat both 1-2 minutes trying to get herself up but she was not able so she puts the alarm button and the nurse came up. She was brought to the emergency room. She felt pain in her left elbow, left hip, left foot. She denies any other symptoms. Patient denies feeling sick, ill, or having any new symptoms prior to fall. the emergency room her left foot x-ray showed distal diametaphysis fracture with impaction and some angulation deformity in second, third, fourth, and fifth metatarsal. left elbow and hip x-ray was unremarkable for acute findings. UA showed positive nitrates and 10-20 WBCs and many bacteria. digoxin level 1.9. WBC 8.0. Hemoglobin 10.6. platelet 298. INR 1.8. Sodium 136. Potassium 4.0. Creatinine 0.4. Random blood glucose 149. In the emergency room his splint was placed in the left lower extremities. Mcginnis catheter was placed in the emergency room for comfort. upon admission, Dr. Cleaning from podiatry was consulted recommended splint and non-weightbearing on left leg. urine culture grew more than 100,000 of gram-negative rods. she was started on rocephin yesterday and had another dose today. I discussed with patient and family [place] [facility] [place]. They all agreed. Patient is discharged from hospital today to be admitted in a [place] [facility]. She will continue to be followed by Dr. Cleaning from podiatry. She will start one Cipro for UTI tomorrow. - Discharge Data Discharge Date: 12/12/16 Discharge Disposition: DC/[facility]fer to [facility] Condition: Fair - Discharge Diagnosis/Problem(s) (1) Neuropathic pain SNOMED Code(s): 819955183 ICD Code: M79.2 - NEURALGIA AND NEURITIS, UNSPECIFIED Status: Chronic Priority: Low Current Visit: No (2) Atrial fibrillation SNOMED Code(s): 63879922 ICD Code: I48.91 - UNSPECIFIED ATRIAL FIBRILLATION Status: Chronic Priority: Medium Current Visit: No (3) Bilateral lower extremity edema SNOMED Code(s): 005973242 ICD Code: R60.0 - LOCALIZED EDEMA Status: Chronic Priority: Low Current Visit: Yes Onset Date: 07/05/15 (4) Diabetes mellitus type 2, uncomplicated SNOMED Code(s): 112015277 ICD Code: E11.9 - TYPE 2 DIABETES MELLITUS WITHOUT COMPLICATIONS Status: Chronic Current Visit: No (5) Fall SNOMED Code(s): 4861875, 130821715 ICD Code: W19.XXXA - UNSPECIFIED FALL, INITIAL ENCOUNTER Status: Acute Priority: High Current Visit: Yes Qualifiers: Encounter type: initial encounter Qualified Code(s): W19.XXXA - Unspecified fall, initial encounter (6) Trigeminal neuralgia SNOMED Code(s): 47796358 ICD Code: G50.0 - TRIGEMINAL NEURALGIA Status: Chronic Current Visit: No - Patient Instructions Diet: Heart Healthy Diet Activity: As Tolerated (was nonweightbearing on left leg) Driving: Do Not Drive Showering/Bathing: May Shower Notify Provider of: Fever - Discharge Plan Prescriptions/Med Rec: Acetaminophen/HYDROcodone [Mondamin 325-10 MG] 0.5 tab PO Q4H PRN #20 tablet PRN Reason: sever Pain Ciprofloxacin HCl [Cipro] 500 mg PO Q12H #10 tablet Iron Polysaccharides Complex [Ferrex 150] 150 mg PO DAILY #30 cap Home Medications: Home Meds Aspirin [Ecotrin] 81 mg PO 1200 06/23/14 [History] Digoxin [Digox] 125 mcg PO DAILY 06/23/14 [History] Diltiazem HCl [Diltiazem 24Hr ER] 300 mg PO DAILY 06/23/14 [History] Fa/Arginine HCl/B12/B6/Pep Ex [Folbee Ar Tablet] 1 tab PO 1200 06/23/14 [History ] sitaGLIPtin Phosphate [Januvia] 100 mg PO 1200 06/23/14 [History] Dorzolamide HCl/Timolol Maleat [Cosopt Eye Drops] 1 drop EYERT BID 07/05/15 [ History] Glimepiride 4 mg PO 0800,1800 07/05/15 [History] atorvaSTATin [Lipitor] 20 mg PO BEDTIME 07/05/15 [History] Potassium Chloride [Klor-Con 10] 20 meq PO 1200,1800 11/11/15 [History] Sertraline [Zoloft] 50 mg PO BEDTIME 11/11/15 [History] traMADol HCl [Tramadol HCl] 50 mg PO BID 11/11/15 [History] OXcarbazepine [Oxcarbazepine] 450 mg PO 0800,2100 04/19/16 [History] Acetaminophen [Tylenol Extra Strength] 1,000 mg PO 0800,199908/10/16 [History] Furosemide 40 mg PO DAILY 08/10/16 [History] Metolazone 2.5 mg PO .SUNDAY,SUN,Sun08/10/16 [History] Warfarin [Coumadin] 5 mg PO 1800 08/10/16 [History] Lisinopril [Prinivil] 5 mg PO DAILY 30 Days 08/24/16 [Rx] Magnesium Oxide 250 mg PO BIDM tablet 08/24/16 [Rx] metFORMIN [Glucophage] 1,000 mg PO BIDMEALS #60 tablet 08/24/16 [Rx] Acetaminophen/HYDROcodone [Mondamin 325-10 MG] 0.5 tab PO Q4H PRN #20 tablet [Rx] Aspirin [Halfprin] 81 mg PO 1200 tab.ec 12/12/16 [Rx] Ciprofloxacin HCl [Cipro] 500 mg PO Q12H #10 tablet 12/12/16 [Rx] Gabapentin [Neurontin] 600 mg PO TID PRN #0 12/12/16 [Rx] Iron Polysaccharides Complex [Ferrex 150] 150 mg PO DAILY #30 cap 12/12/16 [Rx] Referrals: PCP,Unobtain [Primary Care Provider] - - Review of Systems General: Reports: No Symptoms HEENT: Reports: no symptoms Pulmonary: Reports: no symptoms Cardiovascular: Reports: No Symptoms Gastrointestinal: Reports: No symptoms Genitourinary: Reports: no symptoms Musculoskeletal: Reports: foot pain (left foot). Denies: neck pain, shoulder pain, arm pain, hand pain, back pain Skin: Reports: no symptoms Neurological: Reports: No Symptoms Psychiatric: Reports: no symptoms - Patient Data Vitals - Most Recent: Last Vital Signs Temp 36.4 C 12/12/16 10:38 Pulse 62 12/12/16 10:38 Resp 20 12/12/16 10:38 BP 137/72 12/12/16 10:38 Pulse Ox 94 L 12/12/16 10:38 Weight - Most Recent: 70.443 kg I&O - Last 24 hours: Intake & Output 12/11/16 12/12/16 12/12/16 22:59 06:59 14:59 Intake Total 543 300 200 Output Total 900 800 Balance -357 -500 200 Lab Results - Last 24 hrs: Laboratory Results - last 24 hr 12/11/16 12/11/16 12/12/16 Range/Units 16:59 20:58 06:03 WBC 7.6 (5.0-10.0) 10^3/uL RBC 3.81 L (4.2-5.4) 10^6/uL Hgb 10.7 L (12.0-16.0) g/dL Hct 32.7 L (37.0-47.0) % MCV 85.8 (80-100) fL MCH 28.1 (27.0-34.0) pg MCHC 32.7 L (33.0-35.0) g/dL Plt Count 331 (150-450) 10^3/uL Neut % (Auto) 74.7 (42.2-75.2) % Lymph % (Auto) 11.2 L (20.5-50.1) % [place] % (Auto) 11.3 H (2-8) % Eos % (Auto) 2.4 (1.0-3.0) % Baso % (Auto) 0.4 (0.0-1.0) % PT (9.0-12.0) SEC INR (0.9-1.2) Sodium (135-145) mmol/L Potassium (3.6-5.0) mmol/L Chloride (101-111) mmol/L Carbon Dioxide (21.0-31.0) mmol/L Anion Gap BUN (7-18) mg/dL Creatinine (0.6-1.3) mg/dL Est Cr Clr Drug Dosing mL/min Estimated GFR (MDRD) Glucose (74-105) mg/dL POC Glucose 96 156 H (83-110) mg/dl Calcium (8.4-10.2) mg/dl 12/12/16 12/12/16 12/12/16 Range/Units 06:03 06:03 07:41 WBC (5.0-10.0) 10^3/uL RBC (4.2-5.4) 10^6/uL Hgb (12.0-16.0) g/dL Hct (37.0-47.0) % MCV (80-100) fL MCH (27.0-34.0) pg MCHC (33.0-35.0) g/dL Plt Count (150-450) 10^3/uL Neut % (Auto) (42.2-75.2) % Lymph % (Auto) (20.5-50.1) % [place] % (Auto) (2-8) % Eos % (Auto) (1.0-3.0) % Baso % (Auto) (0.0-1.0) % PT 21.6 H (9.0-12.0) SEC INR 2.1 H (0.9-1.2) Sodium 137 (135-145) mmol/L Potassium 3.5 L (3.6-5.0) mmol/L Chloride 94 L (101-111) mmol/L Carbon Dioxide 32.0 H (21.0-31.0) mmol/L Anion Gap 14.5 BUN 11 (7-18) mg/dL Creatinine 0.4 L (0.6-1.3) mg/dL Est Cr Clr Drug Dosing 95.89 mL/min Estimated GFR (MDRD) > 60 Glucose 81 (74-105) mg/dL POC Glucose 111 H (83-110) mg/dl Calcium 9.3 (8.4-10.2) mg/dl Med Orders - Current: Current Medications Acetaminophen (Tylenol Extra Strength) 1,000 mg PO 0800,2000 COUNT INCLUDES THE [facility] Last Admin: 12/12/16 09:08 Dose: 1,000 mg Hydrocodone Bitart/Acetaminophen (Mondamin 325-10 Mg) 0.5 tab PO Q4H PRN PRN Reason: Pain (moderate 4-6) Last Admin: 12/11/16 18:05 Dose: 0.5 tab Aspirin (Halfprin) 81 mg PO 1200 RKIA Atorvastatin Calcium (Lipitor) 20 mg PO BEDTIME COUNT INCLUDES THE [facility] Last Admin: 12/11/16 21:02 Dose: 20 mg Digoxin (Lanoxin) 125 mcg PO DAILY COUNT INCLUDES THE [facility] Last Admin: 12/12/16 08:52 Dose: 125 mcg Diltiazem HCl (Cardizem Cd) 120 mg PO DAILY COUNT INCLUDES THE [facility] Last Admin: 12/12/16 08:51 Dose: 120 mg Diltiazem HCl (Cardizem Cd) 180 mg PO DAILY COUNT INCLUDES THE [facility] Last Admin: 12/12/16 08:51 Dose: 180 mg Dorzolamide/Timolol (Cosopt 2%-0.5% Ophth Soln) 0 ml EYERT BID COUNT INCLUDES THE [facility] Last Admin: 12/12/16 09:02 Dose: 1 drop Furosemide (Lasix) 40 mg PO DAILY COUNT INCLUDES THE [facility] Last Admin: 12/12/16 08:54 Dose: 40 mg Gabapentin (Neurontin) 600 mg PO TID PRN PRN Reason: Pain Glimepiride (Amaryl) 4 mg PO 0800,1800 COUNT INCLUDES THE [facility] Last Admin: 12/12/16 09:09 Dose: 4 mg Ceftriaxone Sodium 1 gm/ (Sodium Chloride) 50 mls @ 100 mls/hr IV Q24H COUNT INCLUDES THE [facility] Last Admin: 12/11/16 15:49 Dose: 100 mls/hr Insulin Aspart (Novolog) 0 unit SUBCUT QIDACANDBED COUNT INCLUDES THE [facility] PRN Reason: Protocol Last Admin: 12/12/16 08:47 Dose: Not Given Lisinopril (Prinivil) 5 mg PO DAILY COUNT INCLUDES THE [facility] Last Admin: 12/12/16 08:54 Dose: 5 mg Magnesium Oxide (Magnesium Oxide) 250 mg PO BIDM COUNT INCLUDES THE [facility] Last Admin: 12/12/16 08:49 Dose: 250 mg Metformin HCl (Glucophage) 1,000 mg PO BIDMEALS COUNT INCLUDES THE [facility] Last Admin: 12/12/16 08:49 Dose: 1,000 mg Metolazone (Zaroxolyn) 2.5 mg PO MoWeFr@0900 COUNT INCLUDES THE [facility] Non-Formulary Medication (Fa/Arginine Hcl/B12/B6/Pep Ex [Folbee Ar Tablet]) 1 tab PO 1200 COUNT INCLUDES THE [facility] Non-Formulary Medication (Sitagliptin Phosphate [Januvia]) 100 mg PO 1200 COUNT INCLUDES THE [facility] Ondansetron HCl (Zofran) 4 mg IVPUSH Q6H PRN PRN Reason: Nausea/Vomiting Oxcarbazepine (Trileptal) 450 mg PO 0800,2100 COUNT INCLUDES THE [facility] Last Admin: 12/12/16 09:10 Dose: 450 mg Polyethylene Glycol (Miralax) 17 gm PO DAILY PRN PRN Reason: Constipation Polysaccharide Iron Complex (Ferrex 150) 150 mg PO DAILY COUNT INCLUDES THE [facility] Last Admin: 12/12/16 08:52 Dose: 150 mg Potassium Chloride (Klor-Con 10) 20 meq PO 1200,1800 COUNT INCLUDES THE [facility] Last Admin: 12/11/16 17:11 Dose: 20 meq Sertraline HCl (Zoloft) 50 mg PO BEDTIME COUNT INCLUDES THE [facility] Last Admin: 12/11/16 21:02 Dose: 50 mg Sodium Chloride (Saline Flush) 10 ml FLUSH ASDIRECTED PRN PRN Reason: Keep Vein Open Last Admin: 12/11/16 15:49 Dose: 10 ml Tramadol HCl (Ultram) 50 mg PO BID COUNT INCLUDES THE [facility] Last Admin: 12/12/16 09:00 Dose: 50 mg Warfarin Sodium (Pharmacy To Dose - Warfarin) 0 dose PO ASDIRECTED COUNT INCLUDES THE [facility] Warfarin Sodium (Coumadin) 5 mg PO ONETIME ONE Stop: 12/12/16 14:01 Discontinued Medications Non-Formulary Medication (Gabapentin) 600 mg PO QID COUNT INCLUDES THE [facility] Warfarin Sodium (Coumadin) 5 mg PO ONETIME ONE Stop: 12/11/16 15:16 Last Admin: 12/11/16 15:49 Dose: 5 mg - Exam General: Reports: alert, oriented, cooperative, severe distress. Denies: no acute distress, sedated, lethargic, obtunded HEENT: Reports: Pupils equal, Pupils reactive, EOMI, Mucous membr. moist/pink Neck: Reports: supple, trachea midline, no JVD Lungs: Reports: Clear to auscultation, Normal respiratory effort Cardiovascular: Reports: Regular Rate, Regular Rhythm Abdomen: Reports: bowel sounds present, soft, no tenderness, no distension. Denies: rigidity, rebound, guarding, tenderness, distension, abnormal bowel sounds (Female) Exam: Deferred Rectal (Female) Exam: Deferred Back Exam: Reports: normal inspection, full range of motion Extremities: Reports: no tenderness/swelling, no clubbing, no cyanosis, no calf tenderness, edema (lower extremities, chronic) Skin: Reports: warm, dry, intact Neurological: Reports: no new focal deficit Psy/Mental Status: Reports: alert, normal affect, normal mood *Q Meaningful Use (DIS) - VTE *Q VTE Criteria *Q: - Stroke *Q Stroke Criteria *Q: - AMI *Q AMI Criteria *Q:
[2016-12-12] MEDS ORDERED: [UNRECOGNIZED DRUG - OTHER] PO SCH (12:00)
[2016-12-12] MEDS ORDERED: B12 PO SCH (12:00)
[2016-12-12] MEDS ORDERED: Aspirin 81 MG Tab.EC PO SCH (12:00)
[2016-12-12] MEDS ORDERED: ARGININE HCL PO SCH (12:00)
[2016-12-12] MEDS ORDERED: B6 PO SCH (12:00)
[2016-12-12] MEDS ORDERED: SITAGLIPTIN PHOSPHATE 100 MG PO SCH (12:00)
[2016-12-12] MEDS: Potassium Chloride 10 MEQ Tab.ER PO SCH (12:42)
[2016-12-12] MEDS ORDERED: Warfarin 5 MG Tab PO ONE (14:00)
[2016-12-13] MEDS ORDERED: Metolazone 2.5 MG Tab PO SCH (09:00)
== END 2016-12-12 13:05 | DRG 563 ==
LOC: DL.ED 10:07 → DL.MS 11:42 → UNDOADMIN 11:42 → DL.MS 14:44
PROVIDERS: ADMIT Family Medicine; ATTEND Family Medicine
DX: S92.332A Displaced fracture of third metatarsal bone, left foot, initial encounter for closed fracture (principal); I69.351 Hemiplegia and hemiparesis following cerebral infarction affecting right dominant side; M25.572 Pain in left ankle and joints of left foot; S92.322A Displaced fracture of second metatarsal bone, left foot, initial encounter for closed fracture; S92.342A Displaced fracture of fourth metatarsal bone, left foot, initial encounter for closed fracture; S92.812A Other fracture of left foot, initial encounter for closed fracture; I48.91 Unspecified atrial fibrillation; I25.10 Atherosclerotic heart disease of native coronary artery without angina pectoris; Z95.5 Presence of coronary angioplasty implant and graft; W19.XXXA Unspecified fall, initial encounter; G50.0 Trigeminal neuralgia; F32.9 Major depressive disorder, single episode, unspecified; E78.5 Hyperlipidemia, unspecified; M19.90 Unspecified osteoarthritis, unspecified site; E11.42 Type 2 diabetes mellitus with diabetic polyneuropathy; Z79.84 Long term (current) use of oral hypoglycemic drugs; Z87.891 Personal history of nicotine dependence; D64.9 Anemia, unspecified; I10 Essential (primary) hypertension; R60.0 Localized edema; Z79.4 Long term (current) use of insulin; M25.552 Pain in left hip; M25.522 Pain in left elbow
CPT/HCPCS: 29515; 36415; 73080-LT; 73630-LT; 80048; 80053; 80162; 81001; 82962; 85025; 85610; 87086; 87088; 87186; 99284; A9270-GY; J0696; J1815-GY; J7050

== ENCOUNTER 2017-08-05 09:48 | Emergency (ER) | payer MEDICARE, BC ==
--- NOTE | 2017-08-05 10:13 | EDM.PDOC ---
ED HPI GENERAL MEDICAL PROBLEM - General Chief Complaint: General Stated Complaint: FROM [facility] Time Seen by Provider: 08/05/17 10:00 Source of Information: Reports: Fdc Records History Limitations: Reports: Altered Mental Status - History of Present Illness INITIAL COMMENTS - FREE TEXT/NARRATIVE: 82 yo white female brought in by OR due to right upper back skin wound ( from татьяна lift) with increased redness and drainage Onset: Unknown/Unsure Onset Date: 08/05/17 Onset Time: 08:00 Duration: Day(s): Location: Reports: Back Severity: Moderate Context: Reports: Trauma Associated Symptoms: Reports: No Other Symptoms Right Middle Back Pain Score (Numeric/FACES): 5 - Related Data Allergies Allergy/AdvReac Type Severity Reaction Status Date / Time tape Allergy Cannot Uncoded 08/05/17 10:19 Remember Home Meds: Home Meds Digoxin [Digox] 125 mcg PO DAILY 06/23/14 [History] Diltiazem HCl [Diltiazem 24Hr ER] 300 mg PO DAILY 06/23/14 [History] Fa/Arginine HCl/B12/B6/Pep Ex [Folbee Ar Tablet] 1 tab PO 1200 06/23/14 [History ] Dorzolamide HCl/Timolol Maleat [Cosopt Eye Drops] 1 drop EYERT BID 07/05/15 [ History] atorvaSTATin [Lipitor] 20 mg PO BEDTIME 07/05/15 [History] Potassium Chloride [Klor-Con 10] 20 meq PO 1200,1800 11/11/15 [History] Sertraline [Zoloft] 50 mg PO BEDTIME 11/11/15 [History] traMADol HCl [Tramadol HCl] 50 mg PO BID 11/11/15 [History] OXcarbazepine [Oxcarbazepine] 450 mg PO 0800,2100 04/19/16 [History] Acetaminophen [Tylenol Extra Strength] 1,000 mg PO 0800,2000 08/10/16 [History] Furosemide 40 mg PO DAILY 08/10/16 [History] Metolazone 2.5 mg PO .SUNDAY,SUN,Sun08/10/16 [History] Warfarin [Coumadin] 3 mg PO 1800 08/10/16 [History] Lisinopril [Prinivil] 5 mg PO DAILY 30 Days tablet 08/24/16 [Rx] Magnesium Oxide 250 mg PO BIDM tablet 08/24/16 [Rx] Aspirin [Halfprin] 81 mg PO 1200 tab.ec 12/12/16 [Rx] Iron Polysaccharides Complex [Ferrex 150] 150 mg PO DAILY #30 cap 12/12/16 [Rx] Gabapentin [Neurontin] 800 mg PO TID PRN 08/05/17 [History] fentaNYL [Duragesic] 75 mcg TOP 08/05/17 [History] metFORMIN [Glucophage] 750 mg PO BIDMEALS 08/05/17 [History] Past Medical History HEENT History: Reports: Glaucoma, Hard of Hearing, Impaired Vision Other HEENT History: glasses; UPPER AND LOWER PARTIALS Cardiovascular History: Reports: Afib, Blood Clots/VTE/DVT, CAD, Heart Failure, High Cholesterol, Hypertension, Stents Respiratory History: Reports: None Genitourinary History: Reports: Urinary Incontinence, UTI, Recurrent Other Genitourinary History: stress incont [employer] History: Reports: Musculoskeletal History: Reports: Osteoarthritis Neurological History: Reports: CVA, Neuropathy, Peripheral, Other (See Below) Other Neuro History: trigeminal neuralgia Psychiatric History: Reports: Depression Other Psychiatric History: recent loss of Endocrine/Metabolic History: Reports: Diabetes, Type II - Infectious Disease History Infectious Disease History: Reports: Other (See Below) Other Infectious Disease History: UNKNOWN - Past Surgical History Musculoskeletal Surgical History: Reports: Shoulder Replacement Social & Family History - Family History Family Medical History: Noncontributory - Tobacco Use Smoking Status *Q: Former Smoker Years of Tobacco use: 9 Packs/Tins Daily: 1 Used Tobacco, but Quit: Yes Month Tobacco Last Used: 1964 Second Hand Smoke Exposure: No - Caffeine Use Caffeine Use: Reports: Coffee, Tea Other Caffeine Use: DAILY AVERAGE 1 IF ANY - Alcohol Use Days Per Week of Alcohol Use: 0 - Recreational Drug Use Recreational Drug Use: No - Living Situation & Occupation Living situation: Reports: , Assisted Living Occupation: Retired ED ROS GENERAL - Review of Systems Review Of Systems: See Below Constitutional: Reports: No Symptoms HEENT: Reports: No Symptoms Respiratory: Reports: No Symptoms Cardiovascular: Reports: No Symptoms Endocrine: Reports: No Symptoms GI/Abdominal: Reports: No Symptoms : Reports: No Symptoms Musculoskeletal: Reports: No Symptoms Skin: Reports: Erythema, Wound (right upper back) Neurological: Reports: No Symptoms Psychiatric: Reports: No Symptoms Hematologic/Lymphatic: Reports: No Symptoms Immunologic: Reports: No Symptoms ED EXAM, SKIN/RASH Exam: See Below Exam Limited By: No Limitations General Appearance: Alert, No Apparent Distress Eye Exam: Bilateral Eye: EOMI, PERRL Nose: Normal Inspection Throat/Mouth: Normal Inspection Head: Atraumatic Neck: Normal Inspection Respiratory/Chest: No Respiratory Distress Cardiovascular: Normal Peripheral Pulses GI/Abdominal: Normal Bowel Sounds Back Exam: Normal Inspection Extremities: Normal Inspection Neurological: Alert Psychiatric: Normal Affect Skin: Erythema, Increased Warmth, Wound/Incision (approx 3cm shallow skin wound w/ eschar w/ surrounding erythema and warm) Location, Skin: Back (right upper back) Characteristics: Macular Associated features: Warmth Lymphatic: No Adenopathy Course - Vital Signs Text/Narrative:: WBC slight elevated Wound cultured and dressed w/ silvadene dressing Pt. to have Intravenous ANCEF 1g IVPB [id number] X 3 days and then start oral KEFLEX 500mg QID for 5 days. Pt. to have wound managed w/ daily dressing w/ silvadene cream and 4x4 gauze Last Recorded V/S: Last Vital Signs Temp 36.8 C 08/05/17 10:03 Pulse 82 08/05/17 10:03 Resp 18 08/05/17 10:03 BP 116/81 08/05/17 10:03 Pulse Ox 92 L 08/05/17 10:03 - Orders/Labs/Meds Orders: Active Orders 24 hr Category Date Time Status CULTURE WOUND [RM] Stat Lab 08/05/17 10:00 Received URINALYSIS W/MICROSCOPIC [UA W/MICROSCOPIC] [URIN] Stat Lab 08/05/17 10:03 Uncollected Sodium Chloride 0.9% [Normal Saline] 1,000 ml Med 08/05/17 10:15 Active IV ASDIRECTED ceFAZolin [Ancef] 1 gm Med 08/05/17 10:52 Ordered Premix Bag 1 bag IV ONETIME Medication Orders Sodium Chloride (Normal Saline) 1,000 mls @ 75 mls/hr IV ASDIRECTED RIKA Cefazolin Sodium/Dextrose 1 gm (/ Premix) 50 mls @ 100 mls/hr IV ONETIME ONE Stop: 08/05/17 11:21 Labs: Laboratory Tests 08/05/17 08/05/17 Range/Units 10:10 10:10 WBC 11.6 H (5.0-10.0) 10^3/uL RBC 3.98 L (4.2-5.4) 10^6/uL Hgb 11.9 L (12.0-16.0) g/dL Hct 35.5 L (37.0-47.0) % MCV 89.2 D (80-100) fL MCH 29.9 (27.0-34.0) pg MCHC 33.5 (33.0-35.0) g/dL Plt Count 397 (150-450) 10^3/uL Neut % (Auto) 80.8 H (42.2-75.2) % Lymph % (Auto) 7.7 L (20.5-50.1) % [place] % (Auto) 10.1 H (2-8) % Eos % (Auto) 1.2 (1.0-3.0) % Baso % (Auto) 0.2 (0.0-1.0) % Lactic Acid 1.3 (0.5-2.2) mmol/L Meds: Medications Generic Name Dose Route Start Last Admin Trade Name Freq PRN Reason Stop Dose Admin Sodium Chloride 1,000 mls @ 75 mls/hr 08/05/17 10:15 Normal Saline IV ASDIRECTED RIKA Cefazolin Sodium/Dextrose 1 gm 50 mls @ 100 mls/hr 08/05/17 10:52 / Premix IV 08/05/17 11:21 ONETIME ONE Discontinued Medications Generic Name Dose Route Start Last Admin Trade Name Freq PRN Reason Stop Dose Admin Silver Sulfadiazine 2 gm 08/05/17 10:56 Silvadene 1% Cream 50 Gm TOP 08/05/17 10:57 ONETIME ONE Departure - Departure Time of Disposition: 11:04 Disposition: DC/Tfer to SNF 03 Condition: Good Clinical Impression: Cellulitis of skin of back - Discharge Information Forms: ED Department Discharge Additional Instructions: Keep area clean and dry Local wound care w/ Silvadene dressing QD and covered w/ 4x4 gauze Antibiotic: 1) ANCEF 1g IVPB Q 8 hours X 3 days THEN 2) KEFLEX 500mg QID X 5 days F/U w/ PCP - My Orders Last 24 Hours: My Active Orders 08/05/17 10:00 CULTURE WOUND [RM] Stat 08/05/17 10:03 URINALYSIS W/MICROSCOPIC [UA W/MICROSCOPIC] [URIN] Stat 08/05/17 10:15 Sodium Chloride 0.9% [Normal Saline] 1,000 ml IV ASDIRECTED 08/05/17 10:52 ceFAZolin [Ancef] 1 gm Premix Bag 1 bag IV ONETIME - Assessment/Plan Last 24 Hours: My Active Orders 08/05/17 10:00 CULTURE WOUND [RM] Stat 08/05/17 10:03 URINALYSIS W/MICROSCOPIC [UA W/MICROSCOPIC] [URIN] Stat 08/05/17 10:15 Sodium Chloride 0.9% [Normal Saline] 1,000 ml IV ASDIRECTED 08/05/17 10:52 ceFAZolin [Ancef] 1 gm Premix Bag 1 bag IV ONETIME
[2017-08-05] MEDS ORDERED: Sodium Chloride 0.9% 1,000 ML IV SCH (10:15)
[2017-08-05 10:28] VITALS: BP 116/81
[2017-08-05] MEDS ORDERED: ceFAZolin 1 GM in Premix Bag 1 BAG IV ONE (10:52)
[2017-08-05] MEDS ORDERED: Silver Sulfadiazine 1% Crm 50 GM Tube TOP ONE (10:56)
== END 2017-08-05 11:45 ==
LOC: DL.ED 09:48
DX: L03.312 Cellulitis of back [any part except buttock and flank] (principal); E11.9 Type 2 diabetes mellitus without complications; Z79.899 Other long term (current) drug therapy; Z79.82 Long term (current) use of aspirin; Z79.84 Long term (current) use of oral hypoglycemic drugs; Z87.891 Personal history of nicotine dependence
CPT/HCPCS: 36415; 83605; 85025; 87070; 96365; 99284; A9270; J0690; 87077; 87186